=== PATIENT | male | born 1985 | race American Indian/Alaskan Native ===

== ENCOUNTER 2017-11-22 20:03 | Emergency (ER) | payer OTHER ==
[2017-11-22 21:07] LABS: Basophils # (Auto) 0.1 K/mm3 (0.0-0.1); Basophils % (Auto) 0.7 % (0.0-1.8); Eosinophils % (Auto) 0.5 % (0.0-4.3); Hematocrit 42.7 % (35.5-45.6); Hemoglobin 14.3 gm/dl (11.8-15.2); Lymphocytes # (Auto) 2.2 K/mm3 (1.2-5.4); Lymphocytes % (Auto) 30.1 % (13.4-35.0); Mean Corpuscular HGB Conc 34 % (32-34); Mean Corpuscular Hemoglobin 30 pg (28-32); Mean Corpuscular Volume 89 fl (84-94); Monocytes # (Auto) 0.7 K/mm3 (0.0-0.8); Monocytes % (Auto) 9.1 % (0.0-7.3); Platelet Count 308 K/mm3 (140-440); Red Blood Count 4.78 M/mm3 (3.65-5.03); Red Cell Distribution Width 14.3 % (13.2-15.2)
[2017-11-22 21:18] LABS: Alanine Aminotransferase 22 units/L (7-56); Albumin 4.2 g/dL (3.9-5); BUN/Creatinine Ratio 11; Blood Urea Nitrogen 13 mg/dL (9-20); Calcium 9.5 mg/dL (8.4-10.2); Hemolysis Index 17
[2017-11-22 21:53] LABS: Bacteria,Urine 1+ /HPF (Negative); Bilirubin,Urine SM (Negative); Blood,Urine NEG (Negative); Calcium Oxalate Crystals,Urine 3+; Color,Urine Amber (Yellow); Mucus,Urine 3+ /HPF
[2017-11-22 21:59] LABS: Benzodiazepines Screen,Urine PRESUMPTIVE NEGATIVE; Cannabinoid Screen,Urine PRESUMPTIVE NEGATIVE; Cocaine Screen,Urine PRESUMPTIVE NEGATIVE; Methadone Screen,Urine PRESUMPTIVE NEGATIVE; Opiate Screen,Urine PRESUMPTIVE NEGATIVE
[2017-11-22 22:15] LABS: Amphetamine Screen,Urine PRESUMPTIVE POSITIVE
[2017-11-22 22:39] LABS: Ictotest,Urine Negative (Negative)
[2017-11-22] MEDS ORDERED: ATARAX PO ONE (22:42)
--- NOTE | 2017-11-22 22:45 | Emergency Department Report ---
HPI - General Chief Complaint: Psych Time Seen by Provider: 11/22/17 21:34 - HPI HPI: Patient is accompanied in by mother, patient with history of schizophrenia, diagnosed about a year ago, presents to ED having delusions, hallucinations, hearing the TV and radio speaking directly to him. Patient also having suicidal ideation, states he tries to kill himself every day although he doesn' t elaborate. Patient was hydrated for similar symptoms unsure what happened per mother. ED Past Medical Hx - Past Medical History Previous Medical History?: Yes Hx Hypertension: No Hx CVA: No Hx Psychiatric Treatment: Yes (Jamil, depression) - Surgical History Past Surgical History?: Yes Additional Surgical History: Left shoulder fx repair - Social History Smoking Status: Never Smoker - Medications Home Medications: Home Medications Medication Instructions Recorded Confirmed Last Taken Type No Known Home Medications [No 07/22/15 11/22/17 Unknown History Reported Home Medications] ED Review of Systems ROS: Stated complaint: MH EVAL Other details as noted in HPI Comment: All other systems reviewed and negative Skin: denies: rash Neurological: denies: headache, weakness Psychiatric: anxiety, depression, auditory hallucinations, visual hallucinations , suicidal thoughts Physical Exam - Physical Exam Vital Signs: Vital Signs 11/22/17 11/22/17 20:09 20:25 Temperature 98.7 F 98.7 F Pulse Rate 50 L 50 L Respiratory 16 18 Rate Blood Pressure 119/77 Blood Pressure 119/77 [Right] O2 Sat by Pulse 100 99 Oximetry Physical Exam: Gen. alert and oriented 3 in no distress Head atraumatic normocephalic Eyes PERR LA EOMI Chest regular rate and rhythm normal S1-S2 lungs clear bilaterally Abdomen soft nondistended Back no point tenderness paravertebral tenderness Neuro no focal deficit. Psych visual and auditory hallucinations, suicidal ideations. ED Course Vital Signs 11/22/17 11/22/17 20:09 20:25 Temperature 98.7 F 98.7 F Pulse Rate 50 L 50 L Respiratory 16 18 Rate Blood Pressure 119/77 Blood Pressure 119/77 [Right] O2 Sat by Pulse 100 99 Oximetry ED Medical Decision Making - Lab Data Result diagrams: 11/22/17 20:39 11/22/17 20:39 Critical care attestation.: If time is entered above; I have spent that time in minutes in the direct care of this critically ill patient, excluding procedure time. ED Disposition Clinical Impression: Acute psychosis, Suicidal ideations Disposition: DC/TX-65 PSY HOSP/PSY UNIT Is pt being admited?: No Does the pt Need Aspirin: No Condition: Stable Referrals: EMBER CRUM MD [Primary Care Provider] - 3-5 Days
[2017-11-22] MEDS ORDERED: VISTARIL ONE (22:59)
--- NOTE | 2017-11-23 17:32 | Consultation ---
History of Present Illness - Reason for Consult Consult date: 11/23/17 Reason for consult: psychiatric evaluation - Chief Complaint Chief complaint: "I just need my meds." - History of Present Psychiatric Illness 32 year old BM seen for psychiatric evaluation in the ER. Per the record, he was initially accompanied by his mother, patient with history of schizophrenia, diagnosed about a year ago, presents to ED having delusions, hallucinations, hearing the TV and radio speaking directly to him. [facility] and getting zyprexa and vistaril but did not follow up with outpatient treatment. He is agitated and wants to leave. He endorses AH but did not specify. Medications and Allergies Allergies Allergy/AdvReac Type Severity Reaction Status Date / Time No Known Allergies Allergy Unverified 07/22/15 14:18 Home Medications Medication Instructions Recorded Confirmed Last Taken Type No Known Home Medications [No 07/22/15 11/22/17 Unknown History Reported Home Medications] Past psychiatric history - Past Medical History Past Medical History: other ("donates plasma 2 x xweekly.") - past Psychiatric treatment and history Psych: Schizophrenia Mental Status Exam - Vital signs Last Vital Signs Temp 98 F 11/23/17 10:00 Pulse 101 H 11/23/17 10:00 Resp 18 11/23/17 12:24 BP 99/69 11/23/17 10:00 Pulse Ox 98 11/23/17 12:24 - Exam Orientation: time, place, person Affect: agitated Mood: congruent with affect Thought content: ideas of reference, paranoia, thought broadcasting Thought Process: Tangential Perceptions: auditory Speech: normal rate and pattern Concentration: focused Motor activity: normal Level of consciousness: alert Memory: Intact Sleep Symptoms: Difficulty Falling Asleep Interaction: irritable, guarded Results Result Diagrams: 11/22/17 20:39 11/22/17 20:39 Abnormal lab results 11/22/17 11/22/17 11/22/17 Range/Units 20:39 20:39 Unknown Richardson % (Auto) 9.1 H (0.0-7.3) % Glucose 71 L (75-100) mg/dL AST 43 H (5-40) units/L Total Creatine Kinase (55-170) units/L Ur Specific Melba 1.033 H (1.003-1.030) Urine WBC (Auto) 11.0 H (0.0-6.0) /HPF 11/23/17 Range/Units 15:52 Richardson % (Auto) (0.0-7.3) % Glucose (75-100) mg/dL AST (5-40) units/L Total Creatine Kinase 1298 H (55-170) units/L Ur Specific Melba (1.003-1.030) Urine WBC (Auto) (0.0-6.0) /HPF All other labs normal. Assessment and Plan Assessment and plan: Impression:a psychosis, unspecified, agitation UDS is positive for amphetamine. differential dx: schizophrenia Recommendation: Continue 1013 and transfer to inpatient psychiatric facility Resume home meds of zyprexa 10mg hs and vistaril 25mg qid
[2017-11-23] MEDS: VISTARIL PO SCH (22:06)
[2017-11-24] MEDS: VISTARIL PO SCH ×4 (09:50→22:01)
[2017-11-25] MEDS: VISTARIL PO SCH ×4 (09:42→22:00)
--- NOTE | 2017-11-25 12:24 | Progress Note ---
Subjective - Reason for Consult Consult date: 11/25/17 Reason for consult: Psychiatry Follow-up - Chief Complaint Chief complaint: "I am better" 32 year old BM seen for psychiatric evaluation in the ER. Per the record, he was initially accompanied by his mother, patient with history of schizophrenia, diagnosed about a year ago, presents to ED having delusions, hallucinations, hearing the TV and radio speaking directly to him. Today the patient is calm during the assessment. He denies seeing or hearing anything from the TV or radio per his original assessment. He admitted to using "meth" prior to his admission to the hospital. He stated that he can stop using recreational drugs on his own. He denies Si/HI's and AVH's. He denies any side effects of his medications. Mental Status Exam - Vital signs Last Vital Signs Temp 97.7 F 11/25/17 07:53 Pulse 93 H 11/25/17 07:53 Resp 18 11/25/17 07:53 BP 126/71 11/25/17 07:53 Pulse Ox 99 11/25/17 07:53 - Exam Narrative exam: MSE: Appearance: calm Behavior: regular eye contact Speech: regular rate and tone Mood: "okay" Affect: congruent to mood Thought Process: circumstantial Thought Content: denies SI/HI's and AVH's Motor Activity: sitting up in bed Cognition: A/O x3 Insight: variable Judgment: variable Assessment and Plan Impression: Unspecified Psychosis. Substance use DO (amphetamines). Today the patient is calm during the assessment. DDx: Schizophrenia, R/O Substance Induced Psychosis Recommendation/Plan: Evaluate 1013 in 24 hours to deternine proper dispo. Continue Zyprexa 10 mg PO HS for psychosis and Vistaril 25 mg PO QID for anxiety. Discussed possible metabolic side effects of Zyprexa with patient.
[2017-11-26] MEDS: VISTARIL PO SCH ×2 (10:50→16:01)
--- NOTE | 2017-11-26 15:15 | Progress Note ---
Subjective - Reason for Consult Consult date: 11/26/17 Reason for consult: Psychiatry Follow-up - Chief Complaint Chief complaint: "Can I leave" 32 year old BM seen for psychiatric evaluation in the ER. Per the record, he was initially accompanied by his mother, patient with history of schizophrenia, diagnosed about a year ago, presents to ED having delusions, hallucinations, hearing the TV and radio speaking directly to him. Today the patient is calm and cooperative during the assessment. He stated that he will follow up with [facility] for outpatient psy services when discharged. He stated that he will stop using recreational drugs. He denies SI/HI's and AVH's. He denies any side effects of his medications. Mental Status Exam - Vital signs Last Vital Signs Temp 97.7 F 11/25/17 21:25 Pulse 103 H 11/25/17 21:25 Resp 18 11/25/17 21:25 BP 118/85 11/25/17 21:25 Pulse Ox 99 11/25/17 21:25 - Exam Narrative exam: MSE: Appearance: calm, cooperative Behavior: regular eye contact Speech: regular rate and tone Mood: "okay" Affect: congruent to mood Thought Process: linear Thought Content: denies SI/HI's and AVH's Motor Activity: sitting up in bed Cognition: A/O x3 Insight: appropriate Judgment: appropriate Assessment and Plan Impression: Unspecified Psychosis. Substance use DO (amphetamines). Today the patient is calm during the assessment. DDx: Schizophrenia, R/O Substance Induced Psychosis Recommendation/Plan: Rescind 1013. Continue Zyprexa 10 mg PO HS for psychosis and Vistaril 25 mg PO QID for anxiety. Discussed possible metabolic side effects of Zyprexa with patient. The patient can follow up at [facility] for outpatient psy services.
--- NOTE | 2017-11-26 15:29 | Emergency Department Report ---
Blank Doc - Documentation Documentation: I was asked by the nurse to reassess Mr. ortez for possible discharge. Patient is calm, oriented 3 in no acute distress. Patient denied any suicidal or homicidal ideation. He denied visual or auditory hallucination. Patient already been assessed by our psychiatric team and their recommendation is to increase and 1013 and discharged patient to follow up as an outpatient. Patient agreed to the plan and he stated that he will follow up with his appointment.
[2017-11-26 15:46] VITALS: BP 122/76
== END 2017-11-26 16:13 ==
LOC: ED 20:03
DX: F23 Brief psychotic disorder (principal); F32.9 Major depressive disorder, single episode, unspecified; F22 Delusional disorders; F15.10 Other stimulant abuse, uncomplicated; Z79.899 Other long term (current) drug therapy
CPT/HCPCS: 36415; 80053; 80307; 81001; 82550; 84443; 85025; 99284; G0480; 80320; Q0177

== ENCOUNTER 2018-12-18 09:51 | Emergency (ER) | payer SELFPAY ==
[2018-12-18 09:58] VITALS: BP 118/66
[2018-12-18] MEDS ORDERED: IBUPROFEN PO ONE (10:51)
--- NOTE | 2018-12-18 10:51 | Emergency Department Report ---
- General Chief complaint: Puncture Wound Stated complaint: STEPPED ON NAIL (LT FOOT) Source: patient Mode of arrival: Ambulatory Limitations: No Limitations - History of Present Illness Initial comments: This is a 33-year-old -Swiss male who presents with pain and swelling to her left foot. Patient states he stepped on a nail in his backyard yesterday. He removed the nail from further and apply pressure. Patient states when he woke up this morning there was some swelling and increased pain to the plantar foot. Pain is worse with weightbearing. He cannot recall the last tetanus vaccine. He denies drainage, numbness or tingling, paresthesias, weaknesses. Onset/Timin -: days(s) Tetanus Up to Date: no Location: L foot Severity: moderate Severity scale (0 -10): 7 Quality: aching Consistency: intermittent Improves with: none Worsens with: palpation, movement Context: other (stepped on a nail) Associated symptoms: denies other symptoms Treatments Prior to Arrival: NSAID - Related Data Home Medications Medication Instructions Recorded Confirmed Last Taken No Known Home Medications [No 07/22/15 11/22/17 Unknown Reported Home Medications] Allergies Allergy/AdvReac Type Severity Reaction Status Date / Time No Known Allergies Allergy Unverified 07/22/15 14:18 Abscess Boil HPI - HPI Chief Complaint: Puncture Wound Stated Complaint: STEPPED ON NAIL (LT FOOT) Home Medications: Home Medications Medication Instructions Recorded Confirmed Last Taken No Known Home Medications [No 07/22/15 11/22/17 Unknown Reported Home Medications] Allergies/Adverse Reactions: Allergies Allergy/AdvReac Type Severity Reaction Status Date / Time No Known Allergies Allergy Unverified 07/22/15 14:18 ED Review of Systems ROS: Stated complaint: STEPPED ON NAIL (LT FOOT) Other details as noted in HPI Constitutional: denies: chills, fever Respiratory: denies: cough, shortness of breath, wheezing Cardiovascular: denies: chest pain, palpitations Gastrointestinal: denies: abdominal pain, nausea, diarrhea Musculoskeletal: other (left foot pain). denies: back pain, joint swelling, arthralgia Skin: denies: rash, lesions Neurological: denies: headache, weakness, paresthesias Psychiatric: denies: anxiety, depression ED Past Medical Hx - Past Medical History Hx Hypertension: No Hx CVA: No Hx Psychiatric Treatment: Yes (Jamil, depression) - Surgical History Additional Surgical History: Left shoulder fx repair - Social History Smoking Status: Never Smoker Substance Use Type: None - Medications Home Medications: Home Medications Medication Instructions Recorded Confirmed Last Taken Type No Known Home Medications [No 07/22/15 11/22/17 Unknown History Reported Home Medications] ED Physical Exam - General Limitations: No Limitations General appearance: alert, in no apparent distress - Respiratory Respiratory exam: Present: normal lung sounds bilaterally. Absent: respiratory distress - Cardiovascular Cardiovascular Exam: Present: regular rate, normal rhythm. Absent: systolic murmur, diastolic murmur, rubs, gallop - GI/Abdominal GI/Abdominal exam: Present: soft, normal bowel sounds - Expanded Lower Extremity Exam Left Hip exam: Present: normal inspection, full ROM Upper Leg exam: Present: normal inspection, full ROM Knee exam: Present: normal inspection, full ROM Lower Leg exam: Present: normal inspection, full ROM Ankle exam: Present: normal inspection, full ROM Foot/Toe exam: Present: tenderness, swelling, puncture wound (2 millimeter puncture wound to the plantar, erythematous surrounding, tenderness, mild swelling). Absent: abrasion, laceration, ecchymosis, deformity, crepidus, dislocation, erythema, amputation, foreign body, calcaneal tenderness, tenderness at base of 5th metatarsal, nail avulsion, subungual hematoma Neuro vascular tendon exam: Present: no vascular compromise Gait: Positive: observed and limited by pain - Neurological Exam Neurological exam: Present: alert, oriented X3 - Psychiatric Psychiatric exam: Present: normal affect, normal mood - Skin Skin exam: Present: warm, dry, intact, normal color. Absent: rash ED Course Vital Signs 12/18/18 09:53 Temperature 97.8 F Pulse Rate 114 H Respiratory 16 Rate Blood Pressure 118/66 O2 Sat by Pulse 96 Oximetry ED Medical Decision Making - Radiology Data Radiology results: report reviewed Left foot 3 views: History: Pain. Findings: No definite bony or articular abnormality. No periosteal reaction lytic lesion or soft tissue calcification. No definite spur identified. Impression: Essentially negative left foot. - Medical Decision Making Patient was examined by me. Vitals are normal and patient is in no acute distress. Obtained a x-ray of left foot. X-ray dictated by radiologist report reviewed by myself with no acute findings. Patient given tetanus vaccine and ibuprofen while in ER. I attempted to give patient results and he was not a room. The nursing staff attempt to find patient several times and unsuccessful. Patient left AGAINST MEDICAL ADVICE. Critical care attestation.: If time is entered above; I have spent that time in minutes in the direct care of this critically ill patient, excluding procedure time. ED Disposition Clinical Impression: Left against medical advice Disposition: DC-07 LEFT AGAINST MED ADVICE Is pt being admited?: No Condition: Stable
[2018-12-18] MEDS ORDERED: BOOSTRIX IM ONE (10:53)
--- NOTE | 2018-12-18 11:21 | XRay Report ---
Left foot 3 views: History: Pain. Findings: No definite bony or articular abnormality. No periosteal reaction lytic lesion or soft tissue calcification. No definite spur identified. Impression: Essentially negative left foot.
== END 2018-12-18 11:45 | disposition left against medical advice (07) ==
LOC: ED 09:51
DX: M79.672 Pain in left foot (principal); M79.89 Other specified soft tissue disorders; F32.9 Major depressive disorder, single episode, unspecified; F20.9 Schizophrenia, unspecified
CPT/HCPCS: 90471; 90715

== ENCOUNTER 2018-12-24 03:30 | Emergency (ER) | payer OTHER ==
[2018-12-24 03:40] VITALS: BP 148/99
[2018-12-24 04:30] LABS: Basophils % (Auto) 0.7 % (0.0-1.8); Eosinophils # (Auto) 0.2 K/mm3 (0.0-0.4); Eosinophils % (Auto) 3.2 % (0.0-4.3); Hematocrit 42.5 % (35.5-45.6); Hemoglobin 14.1 gm/dl (11.8-15.2); Lymphocytes # (Auto) 1.2 K/mm3 (1.2-5.4); Lymphocytes % (Auto) 22.9 % (13.4-35.0); Mean Corpuscular HGB Conc 33 % (32-34); Mean Corpuscular Volume 90 fl (84-94); Monocytes # (Auto) 0.5 K/mm3 (0.0-0.8); Monocytes % (Auto) 9.9 % (0.0-7.3); Platelet Count 369 K/mm3 (140-440); Red Blood Count 4.72 M/mm3 (3.65-5.03); Red Cell Distribution Width 14.2 % (13.2-15.2)
[2018-12-24 04:51] LABS: BUN/Creatinine Ratio 10; Blood Urea Nitrogen 10 mg/dL (9-20); Calcium 10.1 mg/dL (8.4-10.2); Hemolysis Index 9
--- NOTE | 2018-12-24 06:45 | Emergency Department Report ---
HPI - General Chief Complaint: Psych Time Seen by Provider: 12/24/18 06:08 - HPI HPI: 33-year-old -Nigerian male presents to the emergency department via EMS from home for a mental health evaluation. The patient says that he has a history of schizophrenia and has been out of his Zyprexa and Vistaril for the past week. He says he has an appointment at 8 AM this morning at the [facility]. However he says that his mother called EMS because "I was making too much noise." I asked him why he was making so much noise and he says that he sometimes "interacts with the media." However he denies any suicidal or homicidal ideations or any current hallucinations. He denies any alcohol or illicit drug use currently. ED Past Medical Hx - Past Medical History Previous Medical History?: Yes Hx Hypertension: No Hx CVA: No Hx Psychiatric Treatment: Yes (Jamil, mara) - Surgical History Past Surgical History?: Yes Additional Surgical History: Left shoulder fx repair - Social History Smoking Status: Unknown if ever smoked - Medications Home Medications: Home Medications Medication Instructions Recorded Confirmed Last Taken Type No Known Home Medications [No 07/22/15 11/22/17 Unknown History Reported Home Medications] ED Review of Systems ROS: Stated complaint: MH Other details as noted in HPI Comment: All other systems reviewed and negative Constitutional: denies: chills, fever Eyes: denies: eye pain, vision change ENT: denies: ear pain, throat pain Respiratory: denies: cough, shortness of breath Cardiovascular: denies: chest pain, palpitations Gastrointestinal: denies: abdominal pain, vomiting Genitourinary: denies: dysuria, frequency Musculoskeletal: denies: back pain, arthralgia Skin: denies: rash, lesions Neurological: denies: headache, weakness Psychiatric: denies: auditory hallucinations, visual hallucinations, homicidal thoughts, suicidal thoughts Physical Exam - Physical Exam Vital Signs: Vital Signs 12/24/18 03:34 Temperature 98.5 F Pulse Rate 106 H Respiratory 20 Rate Blood Pressure 148/99 O2 Sat by Pulse 100 Oximetry Physical Exam: GENERAL: The patient is well-developed well-nourished. HEENT: Normocephalic. Atraumatic. Patient has moist mucous membranes. EYES: Extraocular motions are intact. NECK: Supple. Trachea is midline. CHEST/LUNGS: Clear to auscultation. There is no respiratory distress noted. HEART/CARDIOVASCULAR: Regular. There is no tachycardia. There is no obvious murmur. ABDOMEN: Abdomen is soft, nontender. Patient has normal bowel sounds. There is no abdominal distention. SKIN: Skin is warm and dry. NEURO: The patient is awake, alert, and oriented. The patient is cooperative. The patient has no focal neurologic deficits. The patient has normal speech. MUSCULOSKELETAL: There is no tenderness or deformity. There is no limitation range of motion. There is no evidence of acute injury. PSYCH: Patient has a flat affect. ED Course Vital Signs 12/24/18 03:34 Temperature 98.5 F Pulse Rate 106 H Respiratory 20 Rate Blood Pressure 148/99 O2 Sat by Pulse 100 Oximetry ED Medical Decision Making - Lab Data Result diagrams: 12/24/18 04:18 12/24/18 04:18 - Medical Decision Making This patient presents to the emergency department for a mental health evaluation as he caused some type of disturbance in his home that caused his family to call 911. Since the patient's been in the emergency department he has been calm and appropriate. He is oriented, AAO 3. He has a flat affect. Labs have been unremarkable. The patient admits to chronic hallucinations but they are not giving him any commands and he denies any suicidal or homicidal ideations. Vital signs stable throughout his ED course. The patient does not appear to meet criteria to be made a 1013 or require involuntary inpatient psychiatric admission. On top of that, the patient has an appointment at 8 AM this morning to get a medication refill and follow-up with his psychiatrist. He was seen by the psychiatric academic manager, Kaleb, who agrees that he does not require 1013 and can be safely discharged. The patient has been instructed to return to the emergency Department with any worsening of his symptoms, thoughts of harming himself or others, or with any acute distress. - Differential Diagnosis schizophrenia, bipolar disorder, schizoaffective, substance abuse Critical Care Time: No Critical care attestation.: If time is entered above; I have spent that time in minutes in the direct care of this critically ill patient, excluding procedure time. ED Disposition Clinical Impression: History of schizophrenia Disposition: DC-01 TO HOME OR SELFCARE Is pt being admited?: No Condition: Stable Instructions: Schizophrenia (ED) Additional Instructions: Please follow-up with your psychiatrist at the [facility] facility at 8 AM today as previously scheduled to restart your medications. Return to the emergency Department if any worsening of your symptoms, thoughts of harming yourself or others, any acute distress. Referrals: [facility] [Outside] - 12/24/18 8:00 am Time of Disposition: 07:11
== END 2018-12-24 07:00 | disposition home or self-care (01) ==
LOC: ED 03:30
DX: F20.9 Schizophrenia, unspecified (principal); F32.9 Major depressive disorder, single episode, unspecified
CPT/HCPCS: 36415; 80048; 85025; 99284; G0480; 80320

== ENCOUNTER 2019-01-01 05:28 | Emergency (ER) | payer OTHER ==
[2019-01-01 05:56] LABS: Bilirubin,Urine NEG (Negative); Blood,Urine NEG (Negative); Color,Urine Straw (Yellow); Protein,Urine <15 mg/dL mg/dL (Negative); Urobilinogen,Urine < 2.0 mg/dL (<2.0)
[2019-01-01 06:04] LABS: Benzodiazepines Screen,Urine PRESUMPTIVE NEGATIVE; Cannabinoid Screen,Urine PRESUMPTIVE NEGATIVE; Cocaine Screen,Urine PRESUMPTIVE NEGATIVE; Methadone Screen,Urine PRESUMPTIVE NEGATIVE; Opiate Screen,Urine PRESUMPTIVE NEGATIVE
[2019-01-01 06:09] LABS: Basophils % (Auto) 0.5 % (0.0-1.8); Eosinophils # (Auto) 0.1 K/mm3 (0.0-0.4); Eosinophils % (Auto) 1.7 % (0.0-4.3); Hematocrit 41.4 % (35.5-45.6); Hemoglobin 13.8 gm/dl (11.8-15.2); Lymphocytes # (Auto) 1.5 K/mm3 (1.2-5.4); Lymphocytes % (Auto) 20.2 % (13.4-35.0); Mean Corpuscular HGB Conc 33 % (32-34); Mean Corpuscular Volume 89 fl (84-94); Monocytes # (Auto) 0.4 K/mm3 (0.0-0.8); Monocytes % (Auto) 6.2 % (0.0-7.3); Platelet Count 340 K/mm3 (140-440); Red Blood Count 4.64 M/mm3 (3.65-5.03); Red Cell Distribution Width 14.5 % (13.2-15.2)
[2019-01-01 06:41] LABS: Amphetamine Screen,Urine PRESUMPTIVE POSITIVE
--- NOTE | 2019-01-01 06:48 | Emergency Department Report ---
ED General Adult HPI - General Chief complaint: Psych Stated complaint: NOT SLEEPING DEPRESSED Time Seen by Provider: 01/01/19 06:14 Source: patient Mode of arrival: Ambulatory Limitations: No Limitations - History of Present Illness Initial comments: Patient is sleeping when I enter the room and states he was made comfortable with department by his mom because he was not sleeping. The patient has a history of schizophrenia and endorses taking his medications daily. Patient denies homicidal or suicidal ideation. Patient also denies auditory or visual hallucinations. Patient states he has not been sleeping for the last couple days. -: Gradual Severity scale (0 -10): 0 Improves with: none Worsens with: none Associated Symptoms: denies other symptoms Treatments Prior to Arrival: none - Related Data Home Medications Medication Instructions Recorded Confirmed Last Taken No Known Home Medications [No 07/22/15 11/22/17 Unknown Reported Home Medications] Allergies Allergy/AdvReac Type Severity Reaction Status Date / Time No Known Allergies Allergy Unverified 07/22/15 14:18 ED Review of Systems ROS: Stated complaint: NOT SLEEPING DEPRESSED Other details as noted in HPI Comment: All other systems reviewed and negative Constitutional: denies: chills, fever Eyes: denies: eye pain, eye discharge, vision change ENT: denies: ear pain, throat pain Respiratory: denies: cough, shortness of breath, wheezing Cardiovascular: denies: chest pain, palpitations Endocrine: no symptoms reported Gastrointestinal: denies: abdominal pain, nausea, diarrhea Genitourinary: denies: urgency, dysuria Musculoskeletal: denies: back pain, joint swelling, arthralgia Skin: denies: rash, lesions Neurological: denies: headache, weakness, paresthesias Psychiatric: denies: anxiety, depression Hematological/Lymphatic: denies: easy bleeding, easy bruising ED Past Medical Hx - Past Medical History Previous Medical History?: Yes Hx Hypertension: No Hx CVA: No Hx Psychiatric Treatment: Yes (Jamil, mara) - Surgical History Additional Surgical History: Left shoulder fx repair - Social History Smoking Status: Current Every Day Smoker Substance Use Type: Methamphetamines - Medications Home Medications: Home Medications Medication Instructions Recorded Confirmed Last Taken Type No Known Home Medications [No 07/22/15 11/22/17 Unknown History Reported Home Medications] ED Physical Exam - General Limitations: No Limitations General appearance: alert, in no apparent distress - Head Head exam: Present: atraumatic, normocephalic - Eye Eye exam: Present: normal appearance, PERRL, EOMI - ENT ENT exam: Present: mucous membranes moist - Neck Neck exam: Present: normal inspection - Respiratory Respiratory exam: Present: normal lung sounds bilaterally. Absent: respiratory distress - Cardiovascular Cardiovascular Exam: Present: regular rate, normal rhythm. Absent: systolic murmur, diastolic murmur, rubs, gallop - GI/Abdominal GI/Abdominal exam: Present: soft, normal bowel sounds. Absent: distended, tenderness - Rectal Rectal exam: Present: deferred - Extremities Exam Extremities exam: Present: normal inspection - Back Exam Back exam: Present: normal inspection - Neurological Exam Neurological exam: Present: alert, oriented X3, CN II-XII intact. Absent: motor sensory deficit - Psychiatric Psychiatric exam: Present: normal affect, normal mood, other (patient has tangential speech). Absent: homicidal ideation, suicidal ideation - Skin Skin exam: Present: warm, dry, intact, normal color. Absent: rash ED Course Vital Signs 01/01/19 01/01/19 01/01/19 05:29 06:45 07:50 Temperature 98 F 98 F 97.7 F Pulse Rate 74 77 110 H Respiratory 18 17 20 Rate Blood Pressure 133/85 Blood Pressure 128/72 135/88 [Left] O2 Sat by Pulse 100 100 100 Oximetry ED Medical Decision Making - Lab Data Result diagrams: 01/01/19 05:56 01/01/19 05:56 Lab Results 01/01/19 01/01/19 01/01/19 Range/Units 05:56 05:56 05:56 WBC (4.5-11.0) K/mm3 RBC (3.65-5.03) M/mm3 Hgb (11.8-15.2) gm/dl Hct (35.5-45.6) % MCV (84-94) fl MCH (28-32) pg MCHC (32-34) % RDW (13.2-15.2) % Plt Count (140-440) K/mm3 Lymph % (Auto) (13.4-35.0) % Real % (Auto) (0.0-7.3) % Eos % (Auto) (0.0-4.3) % Baso % (Auto) (0.0-1.8) % Lymph # (1.2-5.4) K/mm3 Real # (0.0-0.8) K/mm3 Eos # (0.0-0.4) K/mm3 Baso # (0.0-0.1) K/mm3 Seg Neutrophils % (40.0-70.0) % Seg Neutrophils # (1.8-7.7) K/mm3 Sodium 144 (137-145) mmol/L Potassium 3.9 (3.6-5.0) mmol/L Chloride 103.4 (98-107) mmol/L Carbon Dioxide 24 (22-30) mmol/L Anion Gap 21 mmol/L BUN 9 (9-20) mg/dL Creatinine 1.0 (0.8-1.5) mg/dL Estimated GFR > 60 ml/min BUN/Creatinine Ratio 9 % Glucose 100 (75-100) mg/dL Calcium 9.4 (8.4-10.2) mg/dL Total Bilirubin (0.1-1.2) mg/dL Direct Bilirubin (0-0.2) mg/dL Indirect Bilirubin mg/dL AST (5-40) units/L ALT (7-56) units/L Alkaline Phosphatase (35-129) units/L Total Protein (6.3-8.2) g/dL Albumin (3.9-5) g/dL Albumin/Globulin Ratio % Urine Color (Yellow) Urine Turbidity (Clear) Urine pH (5.0-7.0) Ur Specific [place] (1.003-1.030) Urine Protein (Negative) mg/dL Urine Glucose (UA) (Negative) mg/dL Urine Ketones (Negative) mg/dL Urine Blood (Negative) Urine Nitrite (Negative) Urine Bilirubin (Negative) Urine Urobilinogen (<2.0) mg/dL Ur Leukocyte Esterase (Negative) Urine WBC (Auto) (0.0-6.0) /HPF Urine RBC (Auto) (0.0-6.0) /HPF Salicylates < 0.3 L (2.8-20.0) mg/dL Urine Opiates Screen Urine Methadone Screen Acetaminophen < 5.0 L (10.0-30.0) ug/mL Ur Barbiturates Screen Ur Phencyclidine Scrn Ur Amphetamines Screen U Benzodiazepines Scrn Urine Cocaine Screen U Marijuana (THC) Screen Drugs of Abuse Note Plasma/Serum Alcohol (0-0.07) % 01/01/19 01/01/19 01/01/19 Range/Units 05:56 05:56 05:56 WBC 7.2 (4.5-11.0) K/mm3 RBC 4.64 (3.65-5.03) M/mm3 Hgb 13.8 (11.8-15.2) gm/dl Hct 41.4 (35.5-45.6) % MCV 89 (84-94) fl MCH 30 (28-32) pg MCHC 33 (32-34) % RDW 14.5 (13.2-15.2) % Plt Count 340 (140-440) K/mm3 Lymph % (Auto) 20.2 (13.4-35.0) % Real % (Auto) 6.2 (0.0-7.3) % Eos % (Auto) 1.7 (0.0-4.3) % Baso % (Auto) 0.5 (0.0-1.8) % Lymph # 1.5 (1.2-5.4) K/mm3 Real # 0.4 (0.0-0.8) K/mm3 Eos # 0.1 (0.0-0.4) K/mm3 Baso # 0.0 (0.0-0.1) K/mm3 Seg Neutrophils % 71.4 H (40.0-70.0) % Seg Neutrophils # 5.2 (1.8-7.7) K/mm3 Sodium (137-145) mmol/L Potassium (3.6-5.0) mmol/L Chloride (98-107) mmol/L Carbon Dioxide (22-30) mmol/L Anion Gap mmol/L BUN (9-20) mg/dL Creatinine (0.8-1.5) mg/dL Estimated GFR ml/min BUN/Creatinine Ratio % Glucose (75-100) mg/dL Calcium (8.4-10.2) mg/dL Total Bilirubin 0.20 (0.1-1.2) mg/dL Direct Bilirubin < 0.2 (0-0.2) mg/dL Indirect Bilirubin 0.0 mg/dL AST 23 (5-40) units/L ALT 16 (7-56) units/L Alkaline Phosphatase 79 (35-129) units/L Total Protein 7.5 (6.3-8.2) g/dL Albumin 4.5 (3.9-5) g/dL Albumin/Globulin Ratio 1.5 % Urine Color (Yellow) Urine Turbidity (Clear) Urine pH (5.0-7.0) Ur Specific [place] (1.003-1.030) Urine Protein (Negative) mg/dL Urine Glucose (UA) (Negative) mg/dL Urine Ketones (Negative) mg/dL Urine Blood (Negative) Urine Nitrite (Negative) Urine Bilirubin (Negative) Urine Urobilinogen (<2.0) mg/dL Ur Leukocyte Esterase (Negative) Urine WBC (Auto) (0.0-6.0) /HPF Urine RBC (Auto) (0.0-6.0) /HPF Salicylates (2.8-20.0) mg/dL Urine Opiates Screen Urine Methadone Screen Acetaminophen (10.0-30.0) ug/mL Ur Barbiturates Screen Ur Phencyclidine Scrn Ur Amphetamines Screen U Benzodiazepines Scrn Urine Cocaine Screen U Marijuana (THC) Screen Drugs of Abuse Note Plasma/Serum Alcohol < 0.01 (0-0.07) % 01/01/19 01/01/19 Range/Units Unknown Unknown WBC (4.5-11.0) K/mm3 RBC (3.65-5.03) M/mm3 Hgb (11.8-15.2) gm/dl Hct (35.5-45.6) % MCV (84-94) fl MCH (28-32) pg MCHC (32-34) % RDW (13.2-15.2) % Plt Count (140-440) K/mm3 Lymph % (Auto) (13.4-35.0) % Real % (Auto) (0.0-7.3) % Eos % (Auto) (0.0-4.3) % Baso % (Auto) (0.0-1.8) % Lymph # (1.2-5.4) K/mm3 Real # (0.0-0.8) K/mm3 Eos # (0.0-0.4) K/mm3 Baso # (0.0-0.1) K/mm3 Seg Neutrophils % (40.0-70.0) % Seg Neutrophils # (1.8-7.7) K/mm3 Sodium (137-145) mmol/L Potassium (3.6-5.0) mmol/L Chloride (98-107) mmol/L Carbon Dioxide (22-30) mmol/L Anion Gap mmol/L BUN (9-20) mg/dL Creatinine (0.8-1.5) mg/dL Estimated GFR ml/min BUN/Creatinine Ratio % Glucose (75-100) mg/dL Calcium (8.4-10.2) mg/dL Total Bilirubin (0.1-1.2) mg/dL Direct Bilirubin (0-0.2) mg/dL Indirect Bilirubin mg/dL AST (5-40) units/L ALT (7-56) units/L Alkaline Phosphatase (35-129) units/L Total Protein (6.3-8.2) g/dL Albumin (3.9-5) g/dL Albumin/Globulin Ratio % Urine Color Straw (Yellow) Urine Turbidity Clear (Clear) Urine pH 6.0 (5.0-7.0) Ur Specific [place] 1.006 (1.003-1.030) Urine Protein <15 mg/dl (Negative) mg/dL Urine Glucose (UA) Neg (Negative) mg/dL Urine Ketones Neg (Negative) mg/dL Urine Blood Neg (Negative) Urine Nitrite Neg (Negative) Urine Bilirubin Neg (Negative) Urine Urobilinogen < 2.0 (<2.0) mg/dL Ur Leukocyte Esterase Neg (Negative) Urine WBC (Auto) 1.0 (0.0-6.0) /HPF Urine RBC (Auto) 1.0 (0.0-6.0) /HPF Salicylates (2.8-20.0) mg/dL Urine Opiates Screen Presumptive negative Urine Methadone Screen Presumptive negative Acetaminophen (10.0-30.0) ug/mL Ur Barbiturates Screen Presumptive negative Ur Phencyclidine Scrn Presumptive negative Ur Amphetamines Screen Presumptive positive U Benzodiazepines Scrn Presumptive negative Urine Cocaine Screen Presumptive negative U Marijuana (THC) Screen Presumptive negative Drugs of Abuse Note Disclamer Plasma/Serum Alcohol (0-0.07) % - Medical Decision Making The patient again states that he is not homicidal, suicidal, having visual or auditory hallucinations Patient has slept during his entire time in the ED and states he is ready to go home Critical care attestation.: If time is entered above; I have spent that time in minutes in the direct care of this critically ill patient, excluding procedure time. ED Disposition Clinical Impression: Schizophrenia Disposition: DC-01 TO HOME OR SELFCARE Is pt being admited?: No Does the pt Need Aspirin: No Condition: Stable Instructions: Schizophrenia (ED) Additional Instructions: return if worse Referrals: [facility] [Outside] - 3-5 Days [facility] WHITFIELD MD [Primary Care Provider] - 3-5 Days
[2019-01-01 07:06] LABS: BUN/Creatinine Ratio 9; Blood Urea Nitrogen 9 mg/dL (9-20); Calcium 9.4 mg/dL (8.4-10.2); Hemolysis Index 7
[2019-01-01 07:30] LABS: Alanine Aminotransferase 16 units/L (7-56); Albumin 4.5 g/dL (3.9-5)
[2019-01-01 07:42] LABS: Bilirubin,Direct < 0.2 mg/dL (0-0.2)
[2019-01-01 15:38] VITALS: BP 130/82
== END 2019-01-01 15:38 | disposition home or self-care (01) ==
LOC: ED 05:28
DX: F20.9 Schizophrenia, unspecified (principal); F32.9 Major depressive disorder, single episode, unspecified; F17.200 Nicotine dependence, unspecified, uncomplicated; F12.10 Cannabis abuse, uncomplicated
CPT/HCPCS: 36415; 80048; 80076; 80307; 81001; 85025; 99284; G0480; 80320

== ENCOUNTER 2019-05-04 02:21 | Emergency (ER) | payer SELFPAY ==
--- NOTE | 2019-05-04 02:44 | Emergency Department Report ---
ED General Adult HPI - General Chief complaint: Psych Stated complaint: MH Time Seen by Provider: 05/04/19 02:41 Source: patient Mode of arrival: Ambulatory Limitations: No Limitations - History of Present Illness Initial comments: 33 y.o. male with a history of schizophrenia presents with a complaint of someone trying to hurt him. Patient denies any suicidal or homicidal ideation. Patient states that he uses methamphetamine and had been in a verbal altercation with his family and drove here to the emergency department to be evaluated as he stated he wanted to get back on his psych meds. Patient states he's not been admitted to inpatient psych facility in the past. - Related Data Home Medications Medication Instructions Recorded Confirmed Last Taken No Known Home Medications [No 07/22/15 11/22/17 Unknown Reported Home Medications] Allergies Allergy/AdvReac Type Severity Reaction Status Date / Time No Known Allergies Allergy Unverified 07/22/15 14:18 ED Review of Systems ROS: Stated complaint: MH Other details as noted in HPI Constitutional: denies: chills, fever Eyes: denies: eye pain, eye discharge, vision change ENT: denies: ear pain, throat pain Respiratory: denies: cough, shortness of breath, wheezing Cardiovascular: denies: chest pain, palpitations Endocrine: no symptoms reported Gastrointestinal: denies: abdominal pain, nausea, diarrhea Genitourinary: denies: urgency, dysuria Musculoskeletal: denies: back pain, joint swelling, arthralgia Skin: denies: rash, lesions Neurological: denies: headache, weakness, paresthesias Psychiatric: other (delusional thoughts). denies: anxiety, depression Hematological/Lymphatic: denies: easy bleeding, easy bruising ED Past Medical Hx - Past Medical History Previous Medical History?: Yes Hx Hypertension: No Hx CVA: No Hx Psychiatric Treatment: Yes (Schzio, depression) - Surgical History Past Surgical History?: Yes Additional Surgical History: Left shoulder fx repair - Social History Smoking Status: Current Every Day Smoker - Medications Home Medications: Home Medications Medication Instructions Recorded Confirmed Last Taken Type No Known Home Medications [No 07/22/15 11/22/17 Unknown History Reported Home Medications] ED Physical Exam - General Limitations: No Limitations General appearance: alert, in no apparent distress - Head Head exam: Present: atraumatic, normocephalic - Eye Eye exam: Present: normal appearance - ENT ENT exam: Present: mucous membranes moist - Neck Neck exam: Present: normal inspection - Respiratory Respiratory exam: Present: normal lung sounds bilaterally. Absent: respiratory distress - Cardiovascular Cardiovascular Exam: Present: regular rate, normal rhythm. Absent: systolic murmur, diastolic murmur, rubs, gallop - GI/Abdominal GI/Abdominal exam: Present: soft, normal bowel sounds - Rectal Rectal exam: Present: deferred - Extremities Exam Extremities exam: Present: normal inspection - Back Exam Back exam: Present: normal inspection - Neurological Exam Neurological exam: Present: alert, oriented X3 - Psychiatric Psychiatric exam: Present: normal affect, normal mood - Skin Skin exam: Present: warm, dry, intact, normal color. Absent: rash ED Course Vital Signs 05/04/19 02:26 Temperature 98.1 F Pulse Rate 118 H Respiratory 20 Rate Blood Pressure 106/85 O2 Sat by Pulse 100 Oximetry ED Medical Decision Making - Lab Data Result diagrams: 05/04/19 02:35 05/04/19 02:35 - Medical Decision Making Patient comfortable and in no acute distress at the current time. Patient is not meeting criteria for 1013 and will be assessed by psychiatry in am. Critical care attestation.: If time is entered above; I have spent that time in minutes in the direct care of this critically ill patient, excluding procedure time. ED Disposition Clinical Impression: Amphetamine abuse Disposition: DC/TX-70 ANOTHER TYPE HLTHCARE Is pt being admited?: No Condition: Stable Time of Disposition: 07:22 Print Language: SAMMARINESE
[2019-05-04 02:50] LABS: Basophils % (Auto) 0.6 % (0.0-1.8); Eosinophils # (Auto) 0.1 K/mm3 (0.0-0.4); Eosinophils % (Auto) 1.3 % (0.0-4.3); Hematocrit 40.5 % (35.5-45.6); Hemoglobin 13.5 gm/dl (11.8-15.2); Lymphocytes # (Auto) 1.8 K/mm3 (1.2-5.4); Lymphocytes % (Auto) 32.4 % (13.4-35.0); Mean Corpuscular HGB Conc 33 % (32-34); Mean Corpuscular Volume 90 fl (84-94); Monocytes # (Auto) 0.5 K/mm3 (0.0-0.8); Platelet Count 405 K/mm3 (140-440); Red Blood Count 4.52 M/mm3 (3.65-5.03); Red Cell Distribution Width 14.3 % (13.2-15.2)
[2019-05-04 02:59] LABS: Bilirubin,Urine NEG (Negative); Blood,Urine NEG (Negative); Color,Urine Yellow (Yellow); Mucus,Urine 3+ /HPF
[2019-05-04 03:07] LABS: Benzodiazepines Screen,Urine PRESUMPTIVE NEGATIVE; Cannabinoid Screen,Urine PRESUMPTIVE NEGATIVE; Cocaine Screen,Urine PRESUMPTIVE NEGATIVE; Methadone Screen,Urine PRESUMPTIVE NEGATIVE; Opiate Screen,Urine PRESUMPTIVE NEGATIVE
[2019-05-04 03:11] LABS: BUN/Creatinine Ratio 12; Blood Urea Nitrogen 12 mg/dL (9-20); Calcium 9.3 mg/dL (8.4-10.2); Hemolysis Index 7
[2019-05-04 04:01] LABS: Amphetamine Screen,Urine PRESUMPTIVE POSITIVE
--- NOTE | 2019-05-04 08:10 | Consultation ---
History of Present Illness - Reason for Consult Consult date: 05/04/19 Reason for consult: Mental Health Evaluation Requesting physician: VIRGINIA MALHOTRA - Chief Complaint Chief complaint: "The police is after me, the voices are bothering me" - History of Present Psychiatric Illness 33 y.o. AA male who presented to the ER for acute psychosis. This patient is known to me. Today the patient was agitated during the assessment. He stated that he came to the ER because he feel like someone is after him. He stated that the police maybe after him as well. He stated that he want to be discharged to determine if these things are true. The patient has a hx of substance abuse along with having schizophrenia(reported by the patient). He stated that he have been "binging on meth" for several days. He denies SI/HI's and VH's. He stated that the voices he is hearing are real. He denies a poor appetite, but acknowledged that he haven't slept in days. He denies alcohol consumption (etoh). Medications and Allergies Allergies Allergy/AdvReac Type Severity Reaction Status Date / Time No Known Allergies Allergy Unverified 07/22/15 14:18 Home Medications Medication Instructions Recorded Confirmed Last Taken Type No Known Home Medications [No 07/22/15 11/22/17 Unknown History Reported Home Medications] Active Meds: Active Medications Buspirone HCl (Buspar) 7.5 mg PO BID LETY Olanzapine (Zyprexa) 5 mg PO HS LETY Past psychiatric history - Past Medical History Past Medical History: No medical history Past Surgical History: No surgical history - past Psychiatric treatment and history psychiatric treatment history: Hx of substance abuse and reported schizophrenia. Denies a fam psy hx. - Social History Social history: lives with family Mental Status Exam - Vital signs Last Vital Signs Temp 98.1 F 05/04/19 02:26 Pulse 118 H 05/04/19 02:26 Resp 20 05/04/19 02:26 BP 106/85 05/04/19 02:26 Pulse Ox 100 05/04/19 02:26 - Exam Narrative exam: MSE: Appearance: in hospital attire Behavior: regular eye contact Speech: rapid speech Mood: preoccupied Affect: congruent to mood Thought Process: disorganized Thought Content: denies SI/HI's and VH's, paranoid, delusioanl Motor Activity: lying in bed Cognition: A/O x 3 Insight: poor Judgment: poor Results Result Diagrams: 05/04/19 02:35 05/04/19 02:35 Abnormal lab results 05/04/19 05/04/19 05/04/19 Range/Units 02:35 02:35 02:35 [place] % (Auto) (0.0-7.3) % Potassium 3.4 L (3.6-5.0) mmol/L Glucose 117 H (75-100) mg/dL Ur Specific [place] (1.003-1.030) Salicylates < 0.3 L (2.8-20.0) mg/dL Acetaminophen < 5.0 L (10.0-30.0) ug/mL 05/04/19 05/04/19 Range/Units 02:35 02:40 [place] % (Auto) 9.0 H (0.0-7.3) % Potassium (3.6-5.0) mmol/L Glucose (75-100) mg/dL Ur Specific [place] 1.036 H (1.003-1.030) Salicylates (2.8-20.0) mg/dL Acetaminophen (10.0-30.0) ug/mL All other labs normal. Assessment and Plan Assessment and plan: Impression: Substance Induced Psychosis. Substance Use SO (amphetamines). Today the patient was agitated during the assessment. DDx: Schizophrenia, Bipolar DO with psychosis Recommendations/Plan: Initiate 2012 and start Zyprexa 5 mg Po HS for psychosis, Buspar 7.5 mg PO BID for anxiety, and Melatonin 5 mg PO HS PRN for sleep. Discussed possible metabolic side effects of Zyprexa with the patient, he verbalized understanding. Baseline A1c/Lipid Panel ordered for the AM. Dispo: The patient was referred to inpatient psy services. Will staff with Dr Goldie Cervantes.
[2019-05-04] MEDS: BUSPAR PO SCH ×2 (11:00→21:47)
[2019-05-04] MEDS ORDERED: MELATONIN PO PRN (22:00)
[2019-05-05 07:39] LABS: Chol/HDL Ratio 2.52 %
[2019-05-05 08:08] VITALS: BP 102/62
--- NOTE | 2019-05-05 10:13 | Progress Note ---
Subjective - Reason for Consult Consult date: 05/05/19 Reason for consult: Psychiatry Follow-up - Chief Complaint Chief complaint: "I need to stop with the drug use" 33 y.o. AA male who presented to the ER for acute psychosis. This patient is known to me. Today the patient was calm and cooperative during the assessment. The patient is more organized. He stated that he must stop using the "drugs." He stated that he will follow up with outpatient psy/rehab services. when discharged. He denies SI/HI's and AVJH's. Mental Status Exam - Vital signs Last Vital Signs Temp 98.2 F 05/05/19 07:00 Pulse 72 05/05/19 07:00 Resp 18 05/05/19 07:00 BP 102/62 05/05/19 07:00 Pulse Ox 100 05/05/19 07:00 - Exam Narrative exam: MSE: Appearance: calm, cooperative Behavior: regular eye contact Speech: regular rate and tone Mood: "better" Affect: congruent to mood Thought Process: more organized Thought Content: denies SI/HI's and AVH's Motor Activity: lying in bed Cognition: A/O x 3 Insight: fair Judgment: fair Assessment and Plan Impression: Substance Induced Psychosis. Substance Use SO (amphetamines). Today the patient was calm and cooperative during the assessment. The patient's psychosis has resolved. DDx: Schizophrenia, Bipolar DO with psychosis Recommendations/Plan: Rescind 2012. Continue Zyprexa 5 mg PO HS for psychosis and Buspar 7.5 mg PO BID for anxiety. Discussed possible metabolic side effects of Zyprexa with the patient, he verbalized understanding. Discussed the importance to abstain from recreational drug use with the patient, he verbalized understanding. Dispo: The patient can follow up with [facility] for outpatient psy services. Will staff with Dr Goldie Cervantes.
[2019-05-05] MEDS: BUSPAR PO SCH (11:32)
== END 2019-05-05 13:58 | disposition home or self-care (01) ==
LOC: ED 02:21 → EEVIPCON 02:21 → ED 05-05 13:58
DX: F29 Unspecified psychosis not due to a substance or known physiological condition (principal); F15.10 Other stimulant abuse, uncomplicated; F20.9 Schizophrenia, unspecified; F32.9 Major depressive disorder, single episode, unspecified; F17.200 Nicotine dependence, unspecified, uncomplicated
CPT/HCPCS: 36415; 80048; 80061; 80307; 80320; 81001; 83036; 85025; G0480